=== PATIENT | male | born 1990 | race African-American/Black ===

== ENCOUNTER 2019-10-06 10:55 | Emergency (ER) | payer BC, SELFPAY ==
--- NOTE | ~2019-10-06 | XR_ITS ---
EXAMINATION: XR chest 1V portable 10/06/2019 11:52 INDICATION: Cough and shortness of breath PROCEDURE: 2 view chest COMPARISON: 04/19/2015 FINDINGS: The lungs are clear. The cardiomediastinal silhouette is within normal limits. There are no pleural effusions. There is no pneumothorax suspected. IMPRESSION: 1: NO ACUTE CARDIOPULMONARY DISEASE. Reviewed, dictated and finalized at location A.
--- NOTE | 2019-10-06 11:02 | ECG_ITS ---
Measurements Intervals [place] Rate: 75 P: 43 AR: 146 QRS: 53 QRSD: 91 T: -18 QT: 325 QTc: 364 Interpretive Statements SINUS RHYTHM WITH MARKED SINUS ARRHYTHMIA BORDERLINE ST-T WAVE ABNORMALITY- INFERIOR LEADS BASELINE ARTIFACT- I, II, III, AVR, V1-V6 BORDERLINE ECG Electronically Signed On 10-06-2019 11:11:26 CDT by Rashaad Nelson D.O.
[2019-10-06 11:21] VITALS: BP 150/98; PULSE 81; RESP 20; TEMP 36.6; O2SAT 100
[2019-10-06 11:23] LABS: Basophils Percent Auto 0.3 % (0.2-1.2); Eosinophils Absolute Auto 0.3 K/mm3 (0-0.3); Eosinophils Percent Auto 3.8 % (0-4.4); Hemoglobin 16.2 g/dL (14.0-18.0); Immature Granulocyte Absolute 0.04 K/mm3 (0.00-0.031); Immature Granulocyte Percent A 0.6 % (0-0.5); Lymphocytes Absolute Auto 2.67 K/mm3 (0.9-3.2); Lymphocytes Percent Auto 37.1 % (18.3-44.2); Mean Corpuscular HGB Conc 34.5 g/dl (32-36); Mean Corpuscular Hemoglobin 29.6 pg (26-34); Mean Corpuscular Volume 85.8 fl (80-100); Mean Platelet Volume 10.3 fl (7.4-10.4); Monocytes Absolute Auto 0.6 K/mm3 (0.1-0.6); Monocytes Percent Auto 7.9 % (2.6-8.5); Neutrophils Absolute Auto 3.6 K/mm3 (1.3-6.7); Neutrophils Percent Auto 50.3 % (45.5-73.1); Platelet Count Result 264 k/mm3 (150-375); Red Blood Count 5.48 M/mm3 (4.6-6.20); Red Cell Distribution Width 12.2 % (11.5-14.5); White Blood Count 7.2 K/mm3 (4.5-10.0)
[2019-10-06 11:33] LABS: Prothrombin Time 12.9 Seconds (11.1-14.7)
[2019-10-06 11:37] LABS: Blood Urea Nitrogen 11 mg/dL (9-20); Calcium 9.7 mg/dL (8.4-10.2); Carbon Dioxide 29 mmol/L (22-30); Chloride 102 mmol/L (98-107); Estimated CRCL calculation 145 ml/min; Estimated Glomerular Filt Rate > 60; Glucose 115 mg/dL (75-110); Potassium 3.9 mmol/L (3.4-5.0); Sodium 138 mmol/L (137-145)
[2019-10-06 11:49] LABS: Troponin I < 0.012 ng/mL (0.000-0.034)
--- NOTE | 2019-10-06 12:13 | ED.GENADULT ---
HPI - General Adult General Chief complaint: Shortness of Breath/Dyspnea Stated complaint: SOB, CP Time Seen by Provider: 10/06/19 11:13 Source: patient Mode of arrival: ambulatory Limitations: no limitations History of Present Illness HPI narrative: Patient is a 29-year-old male who presents to emergency department for evaluation of congestion sore throat nonproductive cough body aches for the last 2 to 3 days. Denies any sick contacts. Denies any vomiting diarrhea. Patient with history of asthma. Patient is not take anything for his symptoms. Patient has mild discomfort of the throat made worse with swallowing Related Data Home Medications Medication Instructions Recorded Confirmed albuterol sulfate 10/06/19 epinephrine 10/06/19 fluticasone propionate [Flovent 2 puff INHALATION BID 10/06/19 HFA] Allergies Allergy/AdvReac Type Severity Reaction Status Date / Time shellfish derived Allergy Hives Verified 10/06/19 11:25 Review of Systems Review of Systems: All systems reviewed & are unremarkable except as noted in HPI and below PMFSH Past Medical History Medical History (Updated 10/06/19 @ 12:23 by Deangelo Hyde PA-C) Asthma Social History Social History (Updated 10/06/19 @ 12:21 by Deangelo Hyde PA-C) Smoking status: Never smoker Exam Narrative: Exam Narrative: GENERAL: Well-appearing, well-nourished, and in no acute distress. HEAD: Normocephalic, atraumatic. EYES: PERRLA and EOMI. ENT: Nares clear, no rhinorrhea or epistaxis. Mucous membranes moist. NECK: Supple. No adenopathy or masses. CHEST: Clear to auscultation. No respiratory distress. No wheezes rales or rhonchi HEART: Regular rate and rhythm. No murmur heard. EXTREMITIES: Normal range of motion. No edema. SKIN: Warm, dry, no rash. NEURO: No focal deficits. Alert and oriented x3. PSYCH: Normal mood and affect. Course Course Emergency Course: Patient in the room in no distress no high risk changes in the blood work or imaging felt appropriate for outpatient reevaluation Vital Signs Vital signs: Vital Signs Temperature 97.9 F 10/06/19 11:21 Pulse Rate 81 10/06/19 11:21 Respiratory Rate 20 10/06/19 11:21 Blood Pressure 150/98 H 10/06/19 11:21 Pulse Oximetry 100 10/06/19 11:21 Temperature 97.9 F 10/06/19 11:21 Pulse Rate 81 10/06/19 11:21 Respiratory Rate 20 10/06/19 11:21 Blood Pressure 150/98 H 10/06/19 11:21 Pulse Oximetry 100 10/06/19 11:21 Medical Decision Making MDM Narrative Medical decision making narrative: Patient in the room in no distress aware of case findings treatment plan and diagnosis agreeing to follow-up as directed or to return if symptoms worsen or concerns Patient is afebrile nontoxic-appearing no distress without emesis Patient with likely viral syndrome advised to follow with primary care and to self quarantine for the next 14 days Patient with nebulizer at home has plenty of his rescue inhalers Vital Signs Vital Signs: Vital Signs Temperature 97.9 F 10/06/19 11:21 Pulse Rate 81 10/06/19 11:21 Respiratory Rate 20 10/06/19 11:21 Blood Pressure 150/98 H 10/06/19 11:21 Pulse Oximetry 100 10/06/19 11:21 Temperature 97.9 F 10/06/19 11:21 Pulse Rate 81 10/06/19 11:21 Respiratory Rate 20 10/06/19 11:21 Blood Pressure 150/98 H 10/06/19 11:21 Pulse Oximetry 100 10/06/19 11:21 Lab Data Result diagrams: 10/06/19 11:16 10/06/19 11:16 Labs: Lab Results 10/06/19 10/06/19 10/06/19 Range/Units 11:16 11:16 11:16 WBC 7.2 (4.5-10.0) K/mm3 RBC 5.48 (4.6-6.20) M/mm3 Hgb 16.2 (14.0-18.0) g/dL Hct 47.0 (42.0-52.0) % MCV 85.8 (80-100) fl MCH 29.6 (26-34) pg MCHC 34.5 (32-36) g/dl RDW 12.2 (11.5-14.5) % Plt Count 264 (150-375) k/mm3 MPV 10.3 (7.4-10.4) fl Immature Gran % (Auto) 0.6 H (0-0.5) % Neut % (Auto) 50.3 (45.5-73.1) % Lymph
[2019-10-06 13:15] VITALS: BP 146/92; PULSE 72; RESP 18; O2SAT 99
== END 2019-10-06 13:16 | disposition home or self-care (01) ==
PROVIDERS: Emergency Provider Emergency Medicine; PCP Registered Nurse
DX: J06.9 Acute upper respiratory infection, unspecified (principal); Z20.828 Contact with and (suspected) exposure to other viral communicable diseases; R94.31 Abnormal electrocardiogram [ECG] [EKG]
CPT/HCPCS: 36415; 71045; 80048; 84484; 85025; 85610; 85730; 87081; 87880; 93005; 99284